=== PATIENT | female | born 1965 | race Caucasian/White ===

== ENCOUNTER 2020-04-30 07:13 | Emergency (ER) | payer SELFPAY ==
[~2020-04-30] VITALS: Ht 162.6 cm; Wt 56.8 kg
[2020-04-30] MEDS ORDERED: DEXTROSE 50% 25 GM / 50ML DISP.SYRIN. IV ONE ×4 (07:30→14:45)
--- NOTE | 2020-04-30 07:38 | PHYS DOC ---
General Adult EDM: Chief Complaint: ALTERED MENTAL STATUS HPI: HPI: 54-year-old female with terminal uterine cancer on hospice ([facility]), insulin-dependent diabetes and GERD, presents to the ED brought in by EMS from home with concern for altered mental status, unknown last known well time. EMS gave D5 (glucose was 40) and narcan 2mg with no change in mental status. EMS reported pt had 15 tablets of hydrocodone filled a few days ago, only a few tablets left in the bottle. Glucose read as low in ed. ROS: Unobtainable due to ams Medications reviewed with hospice nurse-on hydrocodone/apap 5/325, no AC and lantus 20U. Hospice nurse new and has not met pt prior. Son is DPOA. Pt is a DNR. Heart Score: Risk Factors: Risk Factors: DM, Current or recent (<one month) smoker, HTN, HLP, family history of CAD, obesity. Risk Scores: Score 0 - 3: 2.5% MACE over next 6 weeks - Discharge Home Score 4 - 6: 20.3% MACE over next 6 weeks - Admit for Clinical Observation Score 7 - 10: 72.7% MACE over next 6 weeks - Early Invasive Strategies Current Medications: Current Medications Medications (Trade) Dose Ordered Sig/Isaias Start Time Stop Time Status Last Admin Dose Admin Dextrose (Dextrose 50%-Water Syringe) 25 gm STK-MED ONCE 04/30/20 07:30 04/30/20 07:30 DC Physical Exam: PE: Constitutional: GCS6 (E4V1M1), upper and lower gown is wet-unclear if urine HENT: Normocephalic, atraumatic, bilateral external ears normal, oropharynx dry, no oral exudates, nose normal. [] Eyes: PERRLA-no miosis, 2mm bl, EOMI, conjunctiva normal, no discharge. [] Neck: Normal range of motion, no tenderness, supple, no stridor. [] Cardiovascular:Heart rate regular rhythm, no murmur [] Lungs & Thorax: Bilateral breath sounds clear to auscultation [] Abdomen: Bowel sounds normal, soft, distended lower abdomen-mass?, no tenderness, no masses, no pulsatile masses. [] Skin: Warm, dry, no erythema, no rash. [] Back: No tenderness, no CVA tenderness. [] Extremities: no cyanosis, no clubbing, +bl equal LE edema Neurologic: Alert and oriented X 3, normal motor function, normal sensory functi on, no focal deficits noted. [] -Some bright red vaginal bleeding on chucks-not brisk EKG: EKG: Sinus rhythm at 60 bpm, no axis deviation, QTC 523, no T wave inversions, no ST elevations or ST depressions, Radiology/Procedures: Radiology/Procedures: IMAGING REPORT Signed PATIENT: GLADYS OLSON ACCOUNT: [id number] : 1965 LOCATION: ER AGE: 54 SEX: F EXAM STATUS: REG ER ORD. PHYSICIAN: AMBAR THOMAS DO REASON: ams PROCEDURE: CT HEAD WO CONTRAST CT HEAD WO CONTRAST History:Altered mental status Comparison: None. Technique: Noncontrast CT imaging was performed of the head. Exposure: One or more of the following individualized dose reduction techniques were utilized for this examination: 1. Automated exposure control 2. Adjustment of the mA and/or kV according to patient size 3. Use of iterative reconstruction technique. Findings: No acute intracranial hemorrhage is identified. There is no midline shift. Ventricular size is within normal limits. There is 1 cm transverse by 2 cm AP focus of lower density with cortical involvement of the left parasagittal frontal lobe. The visualized paranasal sinuses and the mastoid air cells are overall aerated. Impression: 1. There is no evidence of acute intracranial hemorrhage. There is focus of lower density of the left parasagittal frontal lobe with cortical involvement which could be due to subacute infarct, underlying mass not excluded. Critical results were discussed with Dr. Thomas at 04/30/2020 8:50 AM. Electronically signed by: Fermin Bird MD (04/30/2020 8:52 AM) [id number] DICTATED and SIGNED BY: FERMIN BIRD MD DATE: 04/30/20 0852 IMAGING REPORT Signed PATIENT: GLADYS OLSON ACCOUNT: [id number] : 1965 LOCATION: ER AGE: 54 SEX: F EXAM STATUS: REG ER ORD. PHYSICIAN: AMBAR THOMAS DO REASON: altered mental status PROCEDURE: PORTABLE CHEST 1V EXAMINATION: PORTABLE CHEST 1V CLINICAL HISTORY: Altered mental status EXAM DATE/TIME: 04/30/2020 7:37 AM COMPARISON: None FINDINGS: Lines, tubes, and devices: None. Cardiomediastinal silhouette: Mild cardiomegaly. Aortic atherosclerotic calcification. Lungs and pleura mild diffuse interstitial opacities and alveolar opacities greater on the left. Bilateral perihilar pulmonary vascular margins relatively indistinct suggestive of pulmonary edema. Question small left pleural effusion. Bones and soft tissues: No acute osseous abnormality. IMPRESSION: Cardiomegaly with findings suggestive of volume overload as described, superimposed infectious process not excluded. Electronically signed by: Samuel Mcguire DO (04/30/2020 8:13 AM) [id number] DICTATED and SIGNED BY: SAMUEL MCGUIRE DO DATE: 04/30/20 0813 Course & Med Decision Making: Course & Med Decision Making Pertinent Labs and Imaging studies reviewed. (See chart for details) Son later present in the ED and states patient had never seen a physician until February 2020, in which was admitted to and diagnosed with stage IV uterine/cervical cancer. Pt c/o constant, daily vaginal bleeding for > 6 months and required a transfusion at in February. Was also started on 20 units of Lantus every night, but is not doing any finger glucose checks. Son states he last saw patient around 12:30 am, eating a popsicle. Was found early this morning unresponsive-is on hospice. After glucose given, pt now more awake and alert but is confused and not fully oriented. Is tolerating oral intake in the ED. Continues to have repeat episodes of hypoglycemia. Pt denies any medication overdose, denies SI-son reports no h/o psych issues. Son reports he gives her her medications and she has been taking them routinely, is not concerned she overdosed on tylenol. 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 Labs with anemia and nonspecific leukocytosis. Urinalysis with no infection or blood. Pt and son agree that she needs to be admitted for confusion, CVA workup/mri, echocardiogram/fluid overload, blood transfusion and hypoglycemia. Pt and son both request be transferred to because her care is established with that hospital system. Accepted to ICU at . Pt stable at transfer-2U prbc had been transfused, lungs with no crackles/rales. Pt stable at time of transfer. Critical Care: Authorized and Performed by: Ambar Thomas DO Total critical care time: approximately 40 minutes Due to a high probability of clinically significant, life threatening deterioration, the patient required my highest level of preparedness to intervene emergently and I personally spent this critical care time directly and personally managing the patient. This critical care time included obtaining a history; examining the patient; pulse oximetry; ventilator management if necessary; ordering and review of studies; arranging urgent treatment with development of a management plan; evaluation of patient's response to treatment; frequent reassessment; discussion with patient/family; and, discussions with other providers. This critical care time was performed to assess and manage the high probability of imminent, life-threatening deterioration that could result in multi-organ failure. It was exclusive of separately billable procedures and treating other patients and teaching time. Please see MDM section and the rest of the note for further information on patient assessment and treatment. Dragon Disclaimer: Dragon Disclaimer: This electronic medical record was generated, in whole or in part, using a voice recognition dictation system. Departure Departure Impression: Primary Impression: AMS (altered mental status) Additional Impressions: Hypoglycemia Normocytic anemia due to blood loss Vaginal bleeding Renal insufficiency Elevated INR Disposition: 05 TRANSFER OTHER (to , ICU, Dr. Chad Feliz) Condition: CRITICAL Justicifation of Admission Dx: Justifications for Admission: Justification of Admission Dx: N/A AMBAR THOMAS DO Apr 30, 2020 07:38
[2020-04-30] MEDS ORDERED: IV DEXTROSE 10% 500 ML IV ONE (08:00)
--- NOTE | 2020-04-30 08:16 | RAD ---
EXAMINATION: PORTABLE CHEST 1V CLINICAL HISTORY: Altered mental status EXAM DATE/TIME: 04/30/2020 7:37 AM COMPARISON: None FINDINGS: Lines, tubes, and devices: None. Cardiomediastinal silhouette: Mild cardiomegaly. Aortic atherosclerotic calcification. Lungs and pleura mild diffuse interstitial opacities and alveolar opacities greater on the left. Bilateral perihilar pulmonary vascular margins relatively indistinct suggestive of pulmonary edema. Question small left pleural effusion. Bones and soft tissues: No acute osseous abnormality. IMPRESSION: Cardiomegaly with findings suggestive of volume overload as described, superimposed infectious process not excluded. Electronically signed by: Samuel Paul DO (04/30/2020 8:13 AM) [id number]
[2020-04-30 08:29] LABS: BILIRUBIN,URINE NEGATIVE (NEG); CLARITY,URINE CLEAR; COLOR,URINE YELLOW; NITRITE,URINE NEGATIVE (NEG); PH,URINE 7.5 (<5.0-8.0); PROTEIN,URINE 30 mg/dL (NEG-TRACE); UROBILINOGEN,URINE 0.2 mg/dL (0.2 mg/dL)
[2020-04-30 08:33] LABS: BARBITURATES NEG (NEG); BENZODIAZEPINES NEG (NEG); CANNABINOIDS NEG (NEG); COCAINE NEG (NEG); METHADONE NEG (NEG); OPIATES POS (NEG); PHENCYCLIDINE NEG (NEG)
[2020-04-30 08:38] LABS: AMPHETAMINE/METHAMPHETAMINE NEG (NEG)
--- NOTE | 2020-04-30 08:54 | RAD ---
CT HEAD WO CONTRAST History:Altered mental status Comparison: None. Technique: Noncontrast CT imaging was performed of the head. Exposure: One or more of the following individualized dose reduction techniques were utilized for this examination: 1. Automated exposure control 2. Adjustment of the mA and/or kV according to patient size 3. Use of iterative reconstruction technique. Findings: No acute intracranial hemorrhage is identified. There is no midline shift. Ventricular size is within normal limits. There is 1 cm transverse by 2 cm AP focus of lower density with cortical involvement of the left parasagittal frontal lobe. The visualized paranasal sinuses and the mastoid air cells are overall aerated. Impression: 1. There is no evidence of acute intracranial hemorrhage. There is focus of lower density of the left parasagittal frontal lobe with cortical involvement which could be due to subacute infarct, underlying mass not excluded. Critical results were discussed with Dr. Fernandes at 04/30/2020 8:50 AM. Electronically signed by: Jose Rojas MD (04/30/2020 8:52 AM) [id number]
[2020-04-30 08:55] LABS: BACTERIA,URINE 0 /HPF (0-FEW); RBC,URINE OCC /HPF (0-2); SQUAMOUS EPITHELIAL CELL,UR MOD /LPF; WBC,URINE OCC /HPF (0-4)
[2020-04-30 08:56] LABS: BASO # 0.1 x10^3/uL (0.0-0.2); BASO % 1 % (0-3); EOS % 0 % (0-3); HEMATOCRIT 21.6 % (36.0-47.0); LYMPH # 1.1 x10^3/uL (1.0-4.8); LYMPH % 5 % (24-48); MEAN CORPUSCULAR HEMOGLOBIN 25 pg (25-35); MEAN CORPUSCULAR HGB CONC 32 g/dL (31-37); MEAN CORPUSCULAR VOLUME 81 fL (79-100); MONO # 1.3 x10^3/uL (0.0-1.1); MONO % 6 % (0-9); NEUT # 18.4 x10^3/uL (1.8-7.7); NEUT % 88 % (31-73); PLATELET COUNT 628 x10^3/uL (140-400); RED BLOOD COUNT 2.68 x10^6/uL (3.50-5.40); RED CELL DISTRIBUTION WIDTH 19.7 % (11.5-14.5); WHITE BLOOD COUNT 20.9 x10^3/uL (4.0-11.0)
[2020-04-30 09:03] LABS: CREATININE 2.9 mg/dL (0.6-1.0); GFR 16.8; HEMOGLOBIN 6.8 g/dL (12.0-15.5); POTASSIUM 4.1 mmol/L (3.5-5.1)
[2020-04-30 09:05] LABS: PROTHROMBIN TIME PATIENT 18.7 SEC (11.7-14.0)
[2020-04-30 09:06] LABS: ACETAMIN 2.3 mcg/ml (10-30); ETHANOL < 10 mg/dL (0-10); SALIC < 2.8 mg/dL (2.8-20.0)
[2020-04-30 09:09] LABS: ALBUMIN 1.3 g/dL (3.4-5.0); DIRECT BILIRUBIN 0.3 mg/dL (0.0-0.2); MAGNESIUM 1.8 mg/dL (1.8-2.4); TOTAL BILIRUBIN 0.4 mg/dL (0.2-1.0); TOTAL PROTEIN 7.3 g/dL (6.4-8.2)
--- NOTE | 2020-04-30 10:53 | EKG ---
[facility] [address] [place] [address] Test Date: 2020-04-30 Test Time: 07:39:00 Pat Name: GLADYS OLSON Department: Room: Gender: F [employer] Operator: : 1965 Requested By: MALIKA THOMAS Order Number: [id number] Reading MD: Measurements Intervals Java Rate: 68 P: 42 NE: 142 QRS: 24 QRSD: 96 T: 33 QT: 486 QTc: 523 Interpretive Statements SINUS RHYTHM PROLONGED QT NO SPECIFIC ECG ABNORMALITIES RI6.02 No previous ECG available for comparison
[2020-04-30 11:36] LABS: % BANDS 5 % (0-9); % BASOS 1 % (0-3); % LYMPHS 3 % (24-48); % MONOS 9 % (0-10); % SEGS 82 % (35-66); PLT ESTIMATE ADEQUATE (ADEQUATE)
[2020-04-30 11:37] LABS: ANISOCYTOSIS SLIGHT
[2020-04-30] MEDS ORDERED: IV DEXTROSE 10% 1,000 ML IV ONE (12:00)
[2020-04-30 14:24] VITALS: BP 105/67
== END 2020-04-30 14:45 | disposition short-term general hospital (02) ==
LOC: ER 07:13
DX: R41.82 Altered mental status, unspecified (principal); E11.649 Type 2 diabetes mellitus with hypoglycemia without coma; D50.0 Iron deficiency anemia secondary to blood loss (chronic); N28.9 Disorder of kidney and ureter, unspecified; N93.9 Abnormal uterine and vaginal bleeding, unspecified; R79.89 Other specified abnormal findings of blood chemistry
CPT/HCPCS: 36415; 70450; 71045; 80048; 80076; 80307; 80329; 81001; 82550; 82962; 83605; 83735; 83880; 84484; 85007; 85025; 85610; 85730; 87040; 93005; 96365; 96375; 99285; G0480; J3490; 86920